=== PATIENT | female | born 1950 | race Caucasian/White ===

== ENCOUNTER → 2016-11-03 | Outpatient (CLI) | payer OTHER ==
[~2016-11-03] MED LIST: BROVANA15 MCG/2 M INH; MOTRIN IB200 M1 PO; PULMICORT0.5 MG/2 M INH
--- NOTE | ~2016-11-03 | EKG ---
PATIENT: SHAUNA AMADO UNIT #: [id number] Ventricular Rate: 71 BPM Atrial Rate: 71 BPM P-R Interval: 198 ms QRS Duration: 72 ms Q-T Interval: 412 ms QTC Calculation(Bezet): 447 ms P Herndon: 52 degrees Calculated R Herndon: 0 degrees Calculated T Herndon: 9 degrees Diagnosis Line: Normal sinus rhythm Diagnosis Line: Possible Inferior infarct , age undetermined Diagnosis Line: Cannot rule out Anterior infarct , age Diagnosis Line: undetermined Diagnosis Line: Abnormal ECG Diagnosis Line: No previous ECGs available Diagnosis Line: Confirmed by SHAYLA WHITE MD ([id number]) on Diagnosis Line: 11/03/2016 3:29:12 PM INTERPRETING MD: CHRISTOPHER AHN
--- NOTE | ~2016-11-03 | CR63 ---
[facility] A Service of [facility] & [facility] RADIOLOGY TEXT RESULTS PATIENT: SHAUNA AMADO LOGAN LOCATION: [facility] : 54 UNIT #: [id number] AGE: [address]: Silver Turcios MD SEX: F ORDER DR: [id number] [facility] [address] [place], [place] [address] [id number] O MR#: [id number] Acc #: [id number] NAME: SHAUNA AMADO : 1950 SEX: F STUDY DATE/TIME: 11/03/2016 15:17 UNIT: [facility] ROOM: STUDY DESCRIPTION: CR Chest 2 View Attending Physician: Silver Turcios M.D. Referring Physician: Silver Turcios M.D. Ordering Physician: Silver Turcios M.D. Primary Care Physician: Kortney Soliz MEDICAL IMAGING REPORT This report is preliminary unless electronic signature is present EXAM PA and lateral chest, 11/03/2016 COMPARISON None HISTORY Preop left knee arthroscopy. FINDINGS PA and lateral views are obtained. Cardiovascular configuration is normal and the lungs are clear. CONCLUSION 1. No active disease. Dictated by... Teddy Dyer M.D. THIS IS AN ELECTRONICALLY VERIFIED REPORT Teddy Dyer M.D. at 11/04/2016 8:01 AM MARTI/fuad TD: 11/03/2016 21:59 JOB #: [id number] MEDICAL IMAGING REPORT COPY
[2016-11-03 13:58] LABS: HEMATOCRIT 44.1 % (35.0-45.0); MEAN CELL VOLUME 86.3 FL (83-96); MEAN CORPUSCULAR HEMOGLOBIN 29.2 PG (28-34); MEAN CORPUSCULAR HGB CONC 33.9 g/dL (30-36); MEAN PLATELET VOLUME 7.8 FL (6.5-11.5); RED BLOOD COUNT 5.12 X10e (3.90-5.30); RED CELL DISTRIBUTION WIDTH 13.8 % (11.0-15.5); WHITE BLOOD COUNT 8.7 X10e3 (4.0-10.5)
[2016-11-03 14:19] LABS: URINE APPEARANCE CLEAR; URINE BILIRUBIN NEG (NEG); URINE BLOOD NEG (NEG); URINE COLOR YELLOW; URINE GLUCOSE NEG (NEG); URINE KETONE NEG (NEG); URINE LEUKOCYTE ESTERASE 1+ (NEG); URINE NITRATE NEG (NEG); URINE PROTEIN NEG (NEG); URINE UROBILINOGEN 0.2 MG/DL (NEG)
[2016-11-03 14:23] LABS: CULTURE INDICATED? YES; URBCS1 AUWI 0-2 /[HPF] (0-2); URINE BACTERIA AUWI NEG (NEGATIVE); URINE SQUAMOUS EPITHELIAL CELL OCC /[HPF]
[2016-11-03 14:26] LABS: BLOOD UREA NITROGEN 18 mg/dL (9-23); CALCIUM SERUM 9.4 mg/dL (8.4-10.2); CARBON DIOXIDE 28 mmol/L (22-31); CHLORIDE 106 mmol/L (100-111); CREATININE SERUM 0.8 mg/dL (0.6-1.4); GLOM FILT RATE Estimated ABOVE60 mL/min (>60); GLUCOSE FASTING 78 mg/dL (70-110); POTASSIUM 3.5 mmol/L (3.5-5.1); SODIUM 141 mmol/L (135-145)
== END | disposition home or self-care (01) ==
LOC: CAMB 13:05
PROVIDERS: Orthopaedic Surgery
DX: Z01.818 Encounter for other preprocedural examination (principal); S83.242A Other tear of medial meniscus, current injury, left knee, initial encounter
CPT/HCPCS: 36415; 71020; 80048; 81003; 85027; 87086; 93005

== ENCOUNTER → 2016-11-10 | Day surgery (SDC) | payer OTHER ==
--- NOTE | ~2016-11-10 | OR ---
Unit #: [id number] #: [id number] Patient: SHAUNA AMADO [id number] [address] [place], [place] [address] [id number] O MR#: [id number] NAME: SHAUNA AMADO ROOM: Date of Procedure: 11/10/2016 Admission Date: 11/10/2016 Surgeon: Silver Turcios M.D. : 1950 Attending Physician: Silver Turcios M.D. Referring Physician: Silver Turcios M.D. Primary Care Physician: Kortney Soliz OPERATIVE REPORT PREOPERATIVE DIAGNOSIS Medial meniscal tear of the left knee. POSTOPERATIVE DIAGNOSIS Medial meniscal tear of the left knee. PROCEDURE PERFORMED Arthroscopic partial medial meniscectomy. ANESTHESIA General. ESTIMATED BLOOD LOSS Less than 25. DESCRIPTION OF PROCEDURE The patient was brought to the operating room, given a general anesthetic. Tourniquet placed around the left thigh. Left leg was exsanguinated. Tourniquet inflated to 300, placed in a leg nuno, and prepped and draped. The arthroscope was introduced through the inferolateral portal. 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 The medial compartment was entered and there was a tear in the medial meniscus with a flap component folded under the inferior surface of the medial meniscus and the midbody region. This was resected using the 3.5 incisor blade as well as a straight and curved basket. The remaining rim was probed and found to be stable. The patient did have degenerative changes in this side of the knee which I would describe as grade 2 to 3. The patient's ACL was intact. The lateral compartment, both meniscus, and articular surfaces were normal. We then removed all the fluid from the knee. The joint was injected with 15 mL of 0.5% plain Marcaine. Sterile dressing applied and the patient's tourniquet was released and general anesthetic reversed. Dictated by... Krish Gupta/anali TD: 11/11/2016 01:36 JOB #: [id number] Unit #: [id number] #: [id number] Patient: SHAUNA AMADO OPERATIVE REPORT Page 1 of 1 X Silver Turcios MD PROCEDURE OPERATIVE NOTE
[2016-11-10 11:37] LABS: URINE APPEARANCE CLEAR; URINE BILIRUBIN NEG (NEG); URINE BLOOD NEG (NEG); URINE COLOR YELLOW; URINE GLUCOSE NEG (NEG); URINE KETONE NEG (NEG); URINE LEUKOCYTE ESTERASE 1+ (NEG); URINE NITRATE NEG (NEG); URINE PH 5.5 (5-8); URINE PROTEIN NEG (NEG); URINE SPECIFIC GRAVITY 1.024 (1.003-1.035); URINE UROBILINOGEN 0.2 MG/DL (NEG)
[2016-11-10 11:40] LABS: CULTURE INDICATED? YES; URINE BACTERIA AUWI NEG (NEGATIVE); URINE SQUAMOUS EPITHELIAL CELL OCC /[HPF]
== END | disposition home or self-care (01) ==
LOC: CSUR 10:39
PROVIDERS: Orthopaedic Surgery
DX: S83.242A Other tear of medial meniscus, current injury, left knee, initial encounter (principal); R73.03 Prediabetes; I10 Essential (primary) hypertension; J45.909 Unspecified asthma, uncomplicated; Z88.8 Allergy status to other drugs, medicaments and biological substances
CPT/HCPCS: 81003; 87086; J2250; J2405; J3010